=== PATIENT | male | born 1960 | race Caucasian/White ===

== ENCOUNTER 2023-07-02 09:34 | Outpatient (OUT) | payer OTHER, SELFPAY ==
[2023-07-02 10:07] LABS: Basophils Absolute Auto 0.1 10^3/uL (0.0-0.1); Basophils Percent Auto 0.8 % (0.2-2.0); Eosinophils Absolute Auto 0.2 10^3/uL (0.0-0.7); Eosinophils Percent Auto 2.9 % (0.9-7.0); Hematocrit 42.6 % (42.0-54.0); Hemoglobin 14.7 g/dL (14.0-18.0); Immature Granulocytes Abs Auto 0.02 10^3/uL (0.00-0.03); Immature Granulocytes Pct Auto 0.3 % (0.0-0.5); Lymphocytes Absolute Auto 1.5 10^3/uL (1.2-3.8); Lymphocytes Percent Auto 25.7 % (20.5-60.0); Mean Corpuscular HGB Conc 34.5 g/dL (29.9-35.2); Mean Corpuscular Hemoglobin 32.2 pg (25.9-34.0); Mean Corpuscular Volume 93.4 fL (80.0-94.0); Mean Platelet Volume 9.8 fL (9.5-13.5); Monocytes Absolute Auto 0.7 10^3/uL (0.3-0.8); Monocytes Percent Auto 11.2 % (1.7-12.0); Neutrophils Absolute Auto 3.5 10^3/uL (1.4-6.5); Neutrophils Percent Auto 59.1 % (43.0-75.0); Platelet Count 220 10^3/uL (150-450); Red Blood Count 4.56 10^6/uL (4.70-6.10); Red Cell Distribution Width 12.1 % (11.0-15.0)
[2023-07-02 11:43] LABS: Alanine Aminotransferase 19 U/L (16-63); Albumin Globulin Ratio 1.2; Albumin Level 4.1 g/dL (3.4-5.0); Alkaline Phosphatase 90 U/L (46-116); Anion Gap 12.2; Aspartate Amino Transferase 16 U/L (15-37); BUN Creatinine Ratio 15.8; Bilirubin Total 0.9 mg/dL (0.2-1.0); Calcium 8.8 mg/dL (8.5-10.1); Carbon Dioxide 24.3 mmol/L (21.0-32.0); Chloride 97 mmol/L (98-107); Chol HDL Ratio 3.1; Cholesterol 213 mg/dL (<=200); Estimated GFR (African America >60 (>=60); Estimated GFR (Non-African Ame >60 (>=60); Globulin 3.4 g/dL; Glucose 81 mg/dL (74-106); HDL Cholesterol 68 mg/dL (40-60); Potassium 4.5 mmol/L (3.5-5.1); Sodium 129 mmol/L (136-145); Total Protein 7.5 g/dL (6.4-8.2); Triglycerides 63 mg/dL (<=150); VLDL CHOLESTEROL 12.6 mg/dL
[2023-07-02 11:58] LABS: Prostate Specific Antigen Scrn 1.17 ng/mL (<=4.00)
== END 2023-07-02 09:35 | disposition home or self-care (01) ==
LOC: LAB 09:34
PROVIDERS: PCP Internal Medicine; Visit Provider Internal Medicine
DX: Z00.00 Encounter for general adult medical examination without abnormal findings (principal); Z12.5 Encounter for screening for malignant neoplasm of prostate
CPT/HCPCS: 36415; 80053; 80061; 85025; G0103

== ENCOUNTER 2024-06-21 07:50 | Outpatient (OUT) | payer MEDICAID, SELFPAY ==
--- NOTE | 2024-06-21 08:07 | XR_ITS ---
The [address] [address] Patient Name: CHRIS GUTIERREZ MRN: [id number] date: 1960 Sex: M Assigned Patient Location: LAB Current Patient Location: LAB Accession/Order Number: [id number] Exam Date: 06/21/2024 08:12 Report Date: 06/22/2024 10:00 At the request of: NEPTALI WATKINS Procedure: XR lumbar spine 6V w bending EXAMINATION: XR lumbar spine 6V w bending HISTORY: Spondylosis Of Lumbar Spine COMPARISON: No relevant comparison available. FINDINGS: BONES: Mild Levocurvature of lumbar spine. Straightening of the normal lordotic curvature. No fracture spinal listhesis. Moderate degenerative facet arthropathy L4-L5, L5-S1. DISC SPACES: Mild narrowing L5-S1. PARASPINOUS: Marked atherosclerotic disease of aorta; no aneurysm. OTHER: Negative. XR/XR lumbar spine 6V w bending IMPRESSION: 1. No appreciable acute abnormality. 2. Abnormal curvature of lumbar spine; positioning versus muscle spasm. 2. Mild/moderate degenerative changes of lower lumbar spine. Electronically authenticated by: PANCHO LARA Date: 06/22/2024 10:00
--- NOTE | 2024-06-21 08:07 | XR_ITS ---
The [address] [address] Patient Name: CHRIS GUTIERREZ MRN: [id number] date: 1960 Sex: M Assigned Patient Location: LAB Current Patient Location: LAB Accession/Order Number: [id number] Exam Date: 06/21/2024 08:12 Report Date: 06/22/2024 09:58 At the request of: NEPTALI WATKINS Procedure: XR hip LT 2V w/ pelvis PROCEDURE: XR hip LT 2V w/ pelvis HISTORY: Left Hip Pain COMPARISON: None. FINDINGS: BONES:Slight joint space narrowing and small periarticular osteophytes along the superior rim of the acetabulum bilaterally. Unremarkable humeral head. SOFT TISSUES:No visible soft tissue swelling. EFFUSION:None visible. OTHER: Negative. XR/XR hip LT 2V w/ pelvis IMPRESSION: 1. Mild degenerative change of the hip joints bilaterally. Electronically authenticated by: PANCHO LARA Date: 06/22/2024 09:58
[2024-06-21 08:53] LABS: Basophils Absolute Auto 0.1 10^3/uL (0.0-0.1); Basophils Percent Auto 0.8 % (0.2-2.0); Eosinophils Absolute Auto 0.2 10^3/uL (0.0-0.7); Eosinophils Percent Auto 3.6 % (0.9-7.0); Hematocrit 41.1 % (42.0-54.0); Hemoglobin 14.1 g/dL (14.0-18.0); Immature Granulocytes Abs Auto 0.01 10^3/uL (0.00-0.03); Immature Granulocytes Pct Auto 0.2 % (0.0-0.5); Lymphocytes Absolute Auto 1.9 10^3/uL (1.2-3.8); Lymphocytes Percent Auto 31.8 % (20.5-60.0); Mean Corpuscular HGB Conc 34.3 g/dL (29.9-35.2); Mean Corpuscular Volume 93.2 fL (80.0-94.0); Mean Platelet Volume 9.4 fL (9.5-13.5); Monocytes Absolute Auto 0.6 10^3/uL (0.3-0.8); Monocytes Percent Auto 10.2 % (1.7-12.0); Neutrophils Absolute Auto 3.2 10^3/uL (1.4-6.5); Neutrophils Percent Auto 53.4 % (43.0-75.0); Platelet Count 267 10^3/uL (150-450); Red Blood Count 4.41 10^6/uL (4.70-6.10); Red Cell Distribution Width 12.2 % (11.0-15.0); White Blood Count 6.1 10^3/uL (4.0-11.0)
[2024-06-21 09:00] LABS: Alanine Aminotransferase 19 U/L (16-63); Albumin Globulin Ratio 1.3; Albumin Level 3.9 g/dL (3.4-5.0); Alkaline Phosphatase 88 U/L (46-116); Anion Gap 12.5; Aspartate Amino Transferase 14 U/L (15-37); BUN Creatinine Ratio 15.7; Bilirubin Total 0.7 mg/dL (0.2-1.0); Calcium 8.9 mg/dL (8.5-10.1); Carbon Dioxide 28.3 mmol/L (21.0-32.0); Chloride 100 mmol/L (98-107); Chol HDL Ratio 3.2; Cholesterol 216 mg/dL (<=200); Estimated GFR (African America >60 (>=60); Estimated GFR (Non-African Ame >60 (>=60); Globulin 3.1 g/dL; Glucose 86 mg/dL (74-106); HDL Cholesterol 67 mg/dL (40-60); Potassium 4.8 mmol/L (3.5-5.1); Sodium 136 mmol/L (136-145); Triglycerides 58 mg/dL (<=150); VLDL CHOLESTEROL 11.6 mg/dL
[2024-06-21 09:26] LABS: Prostate Specific Antigen Scrn 1.46 ng/mL (<=4.00)
== END 2024-06-21 07:51 | disposition home or self-care (01) ==
LOC: LAB 07:53
PROVIDERS: PCP Internal Medicine; Visit Provider Internal Medicine
DX: Z00.00 Encounter for general adult medical examination without abnormal findings (principal); M25.552 Pain in left hip; M47.816 Spondylosis without myelopathy or radiculopathy, lumbar region
CPT/HCPCS: 36415; 72114; 73502; 80053; 80061; 85025; G0103

== ENCOUNTER 2024-10-10 07:52 | Outpatient (OUT) | payer MEDICAID, SELFPAY ==
[2024-10-10 08:28] LABS: Alanine Aminotransferase 36 U/L (16-63); Chol HDL Ratio 2.2; Cholesterol 162 mg/dL (<=200); HDL Cholesterol 73 mg/dL (40-60); Triglycerides 29 mg/dL (<=150); VLDL CHOLESTEROL 5.8 mg/dL
== END 2024-10-10 07:53 | disposition home or self-care (01) ==
LOC: LAB 07:55
PROVIDERS: PCP Internal Medicine; Visit Provider Internal Medicine
DX: E78.00 Pure hypercholesterolemia, unspecified (principal)
CPT/HCPCS: 36415; 80061; 84460